=== PATIENT | male | born 1945 | race Caucasian/White ===

== ENCOUNTER → 2017-09-12 | Day surgery (SDC) | payer BC ==
[~2017-09-12] VITALS: Ht 190.5 cm; Wt 108.9 kg
[~2017-09-12] MED LIST: ADVIL COLD-SIN1 EACH PO; AUGMENTIN 875 M1 TA1 PO; HYDROCODONE BIT1 T11 PO; OMEPRAZOLE20 M2 PO; PAXIL10 MG PO; ZOCOR20 MG PO
--- NOTE | ~2017-09-12 | PROC NOTE ---
[place], [place] PROCEDURE NOTE NAME: [facility] #: [id number] UNIT #: [id number] ROOM: DOCTOR: JEISON ANN MD BIRTHDATE: [birth year] DOS: 09/12/2017 PREOPERATIVE DIAGNOSIS: Screening examination. POSTOPERATIVE DIAGNOSIS: Pancolonic diverticulosis, colon polyp (110 cm). PROCEDURE: Colonoscopy with biopsy. ENDOSCOPIST: Jeison Ann M.D. CREDIT COLLECTIONS MANAGER: EVERARDO. ANESTHESIA: MAC. INDICATIONS: This is a 71-year-old gentleman who comes in today for a screening examination. The procedure and its complications explained to the patient in detail. Complications that were discussed included but were not limited to bleeding, colon perforation, and missed lesions. He agreed to proceed. DESCRIPTION OF PROCEDURE: After identifying the patient, the patient was brought to the endoscopy suite and placed in the left lateral position. After time-out procedure was called, IV sedation was administered and a digital rectal exam was performed. This was within normal limits. An adult colonoscope was now introduced into the anal canal and advanced sequentially into the rectum, sigmoid colon, descending colon, transverse colon and ascending colon up to the cecum. There was found to be pancolonic diverticulosis, but no evidence of any strictures or other sequelae of diverticulitis. There was also found to be a single small polyp at 110 cm from the anal verge, which was biopsied and sent for histopathological diagnosis. After hemostasis was confirmed, the scope was withdrawn. Total withdrawal time was approximately 7-1/2 minutes. Upon reaching the rectum, the scope was retroflexed and there was found to be small internal uncomplicated hemorrhoids. The scope was withdrawn and the patient was taken to the recovery room in stable fashion. There were no complications. Dr. Jeison Ann, the attending endoscopist, was present throughout the operating case. Jeison Ann MD CM:PROCNOTE:PROCEDURE NOTE [id number] JEISON ANN MD
[2017-09-12 08:17] VITALS: BP 166/92
[2017-09-12 08:44] VITALS: BP 124/76
[2017-09-12 08:59] VITALS: BP 136/82
[2017-09-12 09:14] VITALS: BP 139/81
== END | disposition home or self-care (01) ==
LOC: SDC 09-11 13:15
DX: Z12.11 Encounter for screening for malignant neoplasm of colon (principal); D12.3 Benign neoplasm of transverse colon; K64.8 Other hemorrhoids; K57.30 Diverticulosis of large intestine without perforation or abscess without bleeding; K21.9 Gastro-esophageal reflux disease without esophagitis; E78.00 Pure hypercholesterolemia, unspecified; Z80.9 Family history of malignant neoplasm, unspecified; Z91.011 Allergy to milk products; Z91.018 Allergy to other foods

== ENCOUNTER 2020-08-29 14:09 | Emergency (ER) | payer OTHER ==
[2020-08-29] MEDS ORDERED: CEPHALEXIN500 M1 PO (15:05)
== END 2020-08-29 15:47 | disposition home or self-care (01) ==
LOC: ED 14:09
DX: S61.213A Laceration without foreign body of left middle finger without damage to nail, initial encounter (principal); Z91.018 Allergy to other foods; Z91.011 Allergy to milk products; Z79.899 Other long term (current) drug therapy; W31.2XXA Contact with powered woodworking and forming machines, initial encounter; Y93.89 Activity, other specified; Y92.89 Other specified places as the place of occurrence of the external cause; Y99.8 Other external cause status

== ENCOUNTER 2020-09-04 13:53 | Emergency (ER) | payer OTHER ==
[~2020-09-04] VITALS: Ht 190.5 cm; Wt 113.4 kg
[~2020-09-04 13:53] MED LIST changes: +CEPHALEXIN500 M1 PO
== END 2020-09-04 16:00 | disposition home or self-care (01) ==
LOC: ED 13:53
DX: S61.213D Laceration without foreign body of left middle finger without damage to nail, subsequent encounter (principal); Z91.018 Allergy to other foods; Z91.011 Allergy to milk products; Z79.899 Other long term (current) drug therapy; X58.XXXD Exposure to other specified factors, subsequent encounter

== ENCOUNTER → 2021-12-07 | Outpatient (CLI) | payer OTHER | END | disposition home or self-care (01) | LOC: COVID19 15:04 | PROVIDERS: ATTEND Internal Medicine | DX: U07.1 COVID-19 (principal) ==

== ENCOUNTER 2025-01-28 01:26 | Inpatient (IN) | payer MEDICARE ==
[~2025-01-28] VITALS: Ht 190.5 cm; Wt 104.6 kg
[2025-01-28] VITALS (7 sets, daily range): BP systolic 96–158; BP diastolic 58–77
[2025-01-28] MEDS ORDERED: ZINC50 M4 PO (02:28)
[2025-01-28] MEDS ORDERED: BIOFLEX TABLET1 EAC1 PO (02:28)
[2025-01-28] MEDS ORDERED: CANDICIDAL CAP1 EACH PO (02:29)
[2025-01-28] MEDS ORDERED: BEET ROOT500 MG PO (02:29)
[2025-01-28] MEDS ORDERED: CLONIDINE HYDR0.1 MG PO (02:30)
[2025-01-28] MEDS ORDERED: diazePAM 10 MG/2 ML SYR IV ONE (02:35)
[2025-01-28 02:37] LABS: BASO % 0.4 % (0.0-1.0); EOS # 0.2 10*3/uL (0.0-0.4); EOS % 1.9 % (1.0-4.0); MEAN CELL VOLUME 89.2 fl (80.0-94.0); MEAN CORPUSCULAR HGB 28.9 pg (27.0-31.0); MEAN CORPUSCULAR HGB CONC 32.4 g/dl (33.0-37.0); MEAN PLATELET VOLUME 8.9 fl (9.6-12.3); MONO # 0.6 10*3/uL (0.1-1.0); MONO % 7.1 % (3.0-9.0); NEUT # 5.6 10*3/uL (2.3-7.9); NEUT % 71.8 % (47.0-73.0); PLATELET COUNT AUTOMATED 214 10*3/uL (130-400); RED BLOOD COUNT 4.15 10*6/uL (4.50-5.90); RED CELL DISTRI WIDTH 14.5 % (0-14.5); WHITE BLOOD COUNT 7.8 10*3/uL (4.8-10.8)
[2025-01-28 02:56] LABS: BUN 23 mg/dl (9-23); CHLORIDE 104 mmol/L (98-107); POTASSIUM 3.9 mmol/L (3.4-5.1)
[2025-01-28] MEDS ORDERED: Ondansetron Hydrochloride 4 MG/2 ML VIAL IV PRN (03:30)
[2025-01-28] MEDS ORDERED: ACETAMINOPHEN 325 MG TAB PO PRN (03:30)
[2025-01-28] MEDS ORDERED: METHOCARBAMOL 750 MG TAB PO PRN (03:35)
[2025-01-28] MEDS ORDERED: hydrOXYzine 50 MG CAP PO PRN (03:35)
[2025-01-28] MEDS ORDERED: diphenhydrAMINE hydrochloride 50 MG/ML VIAL IV PRN (03:35)
[2025-01-28] MEDS ORDERED: Dicyclomine Hydrochloride 20 MG TAB PO PRN (03:35)
[2025-01-28] MEDS ORDERED: rOPINIRole Hydrochloride 0.25 MG TAB PO PRN (03:35)
[2025-01-28] MEDS ORDERED: Buprenorphine Hydrochloride 2 MG TAB SL SCH (03:40)
[2025-01-28] MEDS ORDERED: Pantoprazole Sodium 40 MG TAB PO SCH (06:00)
[2025-01-28 06:53] LABS: ETHYL ALCOHOL < 3.0 mg/dl (<3)
[2025-01-28] MEDS ORDERED: SIMVASTATIN 20 MG TAB PO SCH (10:00)
[2025-01-28] MEDS ORDERED: PARoxetine Hydrochloride 10 MG TAB PO SCH (10:00)
[2025-01-28] MEDS ORDERED: Enoxaparin Sodium 40 MG/0.4 ML SYR SC SCH (10:00)
[2025-01-28] MEDS ORDERED: SODIUM CHLORIDE 0.9% 500 ML IV ONE (13:50)
[2025-01-28] MEDS ORDERED: CALCIUM (TUMS) 500MG PO PRN (23:10)
[2025-01-29] VITALS: BP 136/67; BP 156/80
[2025-01-29 04:00] VITALS: BP 149/83
[2025-01-29] MEDS ORDERED: Buprenorphine Hydrochloride 2 MG TAB SL SCH (06:00)
[2025-01-29 08:00] VITALS: BP 174/93
[2025-01-29 12:00] VITALS: BP 118/73
[2025-01-29 16:00] VITALS: BP 134/61
[2025-01-29 20:00] VITALS: BP 144/93
[2025-01-30] VITALS: BP 149/71
[2025-01-30 08:00] VITALS: BP 137/82
[2025-01-30 12:00] VITALS: BP 122/64
[2025-01-30 16:00] VITALS: BP 142/72
[2025-01-30 20:00] VITALS: BP 118/59
[2025-01-31] VITALS: BP 131/84
[2025-01-31 05:00] VITALS: BP 130/67
[2025-01-31 06:01] LABS: BASO % 0.5 % (0.0-1.0); EOS # 0.3 10*3/uL (0.0-0.4); EOS % 4.7 % (1.0-4.0); HEMATOCRIT 37.7 % (42.0-52.0); MEAN CELL VOLUME 92.4 fl (80.0-94.0); MEAN CORPUSCULAR HGB 28.7 pg (27.0-31.0); MEAN PLATELET VOLUME 8.8 fl (9.6-12.3); MONO # 0.6 10*3/uL (0.1-1.0); MONO % 9.8 % (3.0-9.0); NEUT # 3.2 10*3/uL (2.3-7.9); NEUT % 56.6 % (47.0-73.0); PLATELET COUNT AUTOMATED 184 10*3/uL (130-400); RED BLOOD COUNT 4.08 10*6/uL (4.50-5.90); RED CELL DISTRI WIDTH 14.9 % (0-14.5); WHITE BLOOD COUNT 5.7 10*3/uL (4.8-10.8)
[2025-01-31 06:08] LABS: ALKALINE PHOSPHATASE 144 U/L (46-116); BUN 22 mg/dl (9-23); CHLORIDE 102 mmol/L (98-107); POTASSIUM 4.3 mmol/L (3.4-5.1); SGPT/ALT 37 U/L (5-49); TOTAL PROTEIN 6.6 gm/dL (6.0-8.0)
[2025-01-31 08:00] VITALS: BP 108/61
[2025-01-31] MEDS ORDERED: SODIUM CHLORIDE 0.9% 500 ML IV ONE (09:05)
[2025-01-31 12:00] VITALS: BP 127/67
[2025-01-31] MEDS ORDERED: MUPIROCIN 15 GM TUBE T SCH (13:50)
[2025-01-31 16:00] VITALS: BP 124/66
[2025-01-31 20:00] VITALS: BP 132/47
[2025-02-01] VITALS: BP 142/74
[2025-02-01 06:33] LABS: BASO % 0.4 % (0.0-1.0); EOS # 0.4 10*3/uL (0.0-0.4); EOS % 6.2 % (1.0-4.0); HEMATOCRIT 39.8 % (42.0-52.0); MEAN CELL VOLUME 92.8 fl (80.0-94.0); MEAN CORPUSCULAR HGB 29.6 pg (27.0-31.0); MEAN CORPUSCULAR HGB CONC 31.9 g/dl (33.0-37.0); MEAN PLATELET VOLUME 9.4 fl (9.6-12.3); MONO # 0.6 10*3/uL (0.1-1.0); MONO % 8.6 % (3.0-9.0); NEUT # 3.9 10*3/uL (2.3-7.9); NEUT % 57.5 % (47.0-73.0); PLATELET COUNT AUTOMATED 221 10*3/uL (130-400); RED BLOOD COUNT 4.29 10*6/uL (4.50-5.90); RED CELL DISTRI WIDTH 14.8 % (0-14.5); WHITE BLOOD COUNT 6.7 10*3/uL (4.8-10.8)
[2025-02-01 07:13] LABS: BUN 20 mg/dl (9-23); CHLORIDE 102 mmol/L (98-107); POTASSIUM 3.7 mmol/L (3.4-5.1)
[2025-02-01 08:00] VITALS: BP 117/63
[2025-02-01] MEDS ORDERED: ATARAX,VISTARIL50 MG PO (10:01)
[2025-02-01] MEDS ORDERED: ROPINIROLE HY0.25 MG PO (10:01)
[2025-02-01] MEDS ORDERED: ONDANSETRON HYDR4 MG PO (10:01)
== END 2025-02-01 10:48 | disposition home or self-care (01) | DRG 897 ==
LOC: ED 01:26 → EDHOLD 02:42 → 5E 02:42
PROVIDERS: Emergency Medicine; Student in an Organized Health Care Education/Training Program; ADMIT Internal Medicine; ATTEND Internal Medicine
DX: F11.93 Opioid use, unspecified with withdrawal (principal); G89.29 Other chronic pain; D64.9 Anemia, unspecified; M79.10 Myalgia, unspecified site; M54.50 Low back pain, unspecified; R73.9 Hyperglycemia, unspecified; K57.30 Diverticulosis of large intestine without perforation or abscess without bleeding; K21.9 Gastro-esophageal reflux disease without esophagitis; E78.2 Mixed hyperlipidemia; I71.9 Aortic aneurysm of unspecified site, without rupture; F32.5 Major depressive disorder, single episode, in full remission; F41.9 Anxiety disorder, unspecified; Z90.49 Acquired absence of other specified parts of digestive tract; Z82.49 Family history of ischemic heart disease and other diseases of the circulatory system; Z82.3 Family history of stroke; Z91.014 Allergy to mammalian meats; Z91.011 Allergy to milk products; Z79.899 Other long term (current) drug therapy

== ENCOUNTER 2025-02-12 00:06 | Emergency (ER) | payer MEDICARE ==
[~2025-02-12] VITALS: Ht 185.4 cm; Wt 100.7 kg
[~2025-02-12 00:06] MED LIST changes: +ATARAX,VISTARIL50 MG PO; +BEET ROOT500 MG PO; +BIOFLEX TABLET1 EAC1 PO; +CANDICIDAL CAP1 EACH PO; +CLONIDINE HYDR0.1 MG PO; +ONDANSETRON HYDR4 MG PO; +ROPINIROLE HY0.25 MG PO; +ZINC50 M4 PO
[2025-02-12] MEDS ORDERED: SODIUM CHLORIDE 0.9% 1,000 ML IV ONE (01:45)
[2025-02-12] MEDS ORDERED: Midazolam Hydrochloride 2 MG/2 ML VIAL IV ONE ×2 (01:45→03:05)
[2025-02-12 01:56] LABS: BASO % 0.3 % (0.0-1.0); EOS # 0.2 10*3/uL (0.0-0.4); EOS % 2.7 % (1.0-4.0); HEMATOCRIT 37.7 % (42.0-52.0); MEAN CELL VOLUME 88.9 fl (80.0-94.0); MEAN CORPUSCULAR HGB CONC 32.6 g/dl (33.0-37.0); MEAN PLATELET VOLUME 8.6 fl (9.6-12.3); MONO # 0.4 10*3/uL (0.1-1.0); MONO % 6.3 % (3.0-9.0); NEUT # 4.6 10*3/uL (2.3-7.9); NEUT % 71.3 % (47.0-73.0); PLATELET COUNT AUTOMATED 281 10*3/uL (130-400); RED BLOOD COUNT 4.24 10*6/uL (4.50-5.90); RED CELL DISTRI WIDTH 14.6 % (0-14.5); WHITE BLOOD COUNT 6.4 10*3/uL (4.8-10.8)
[2025-02-12 02:17] LABS: ALKALINE PHOSPHATASE 130 U/L (46-116); BUN 9 mg/dl (9-23); CHLORIDE 105 mmol/L (98-107); POTASSIUM 3.8 mmol/L (3.4-5.1); SGPT/ALT 19 U/L (5-49); TOTAL PROTEIN 7.1 gm/dL (6.0-8.0)
[2025-02-12] MEDS ORDERED: IOHEXOL 300 MG/ML 100 ML VIAL IV ONE (02:25)
[2025-02-12] MEDS ORDERED: IOHEXOL 300 MG/ML 100 ML VIAL ONE (02:46)
[2025-02-12 03:05] LABS: BILIRUBIN Negative (Negative); BLOOD Negative (Negative); CLARITY Clear (Clear); COLOR Yellow (Yellow); GLUCOSE Negative (Negative); KETONE Negative (Negative); LEUKO ESTERASE Trace (Negative); NITRITE Negative (Negative); SPECIFIC GRAVITY <= 1.005 (1.001-1.030); UROBILINOGEN 0.2 E.U./dl (0.0-1.0)
[2025-02-12 03:13] LABS: RBC 0-2 rbc/hpf (0-2)
[2025-02-12] MEDS ORDERED: clonAZEPAM 1 MG TAB PO ONE (04:10)
== END 2025-02-12 05:01 | disposition home or self-care (01) ==
LOC: ED 00:06
PROVIDERS: Internal Medicine
DX: F41.9 Anxiety disorder, unspecified (principal); N40.0 Benign prostatic hyperplasia without lower urinary tract symptoms; D64.9 Anemia, unspecified; Z79.899 Other long term (current) drug therapy; Z98.890 Other specified postprocedural states; Z90.49 Acquired absence of other specified parts of digestive tract

== ENCOUNTER 2025-02-14 21:31 | Emergency (ER) | payer MEDICARE ==
[~2025-02-14] VITALS: Ht 190.5 cm; Wt 102.1 kg
[2025-02-14 22:33] LABS: BASO % 0.7 % (0.0-1.0); EOS # 0.2 10*3/uL (0.0-0.4); EOS % 3.7 % (1.0-4.0); HEMATOCRIT 36.2 % (42.0-52.0); MEAN CELL VOLUME 89.8 fl (80.0-94.0); MEAN CORPUSCULAR HGB 28.5 pg (27.0-31.0); MEAN CORPUSCULAR HGB CONC 31.8 g/dl (33.0-37.0); MEAN PLATELET VOLUME 8.2 fl (9.6-12.3); MONO # 0.5 10*3/uL (0.1-1.0); NEUT # 2.6 10*3/uL (2.3-7.9); NEUT % 56.3 % (47.0-73.0); PLATELET COUNT AUTOMATED 272 10*3/uL (130-400); RED BLOOD COUNT 4.03 10*6/uL (4.50-5.90); RED CELL DISTRI WIDTH 14.6 % (0-14.5); WHITE BLOOD COUNT 4.6 10*3/uL (4.8-10.8)
[2025-02-14 23:01] LABS: BUN 10 mg/dl (9-23); CHLORIDE 106 mmol/L (98-107)
[2025-02-14] MEDS ORDERED: LORazepam 1 MG TAB PO ONE (23:05)
== END 2025-02-15 00:39 | disposition home or self-care (01) ==
LOC: ED 21:31
PROVIDERS: Internal Medicine
DX: F41.9 Anxiety disorder, unspecified (principal); D64.9 Anemia, unspecified; Z79.899 Other long term (current) drug therapy; Z98.890 Other specified postprocedural states; Z90.49 Acquired absence of other specified parts of digestive tract

== ENCOUNTER 2025-03-14 03:51 | Emergency (ER) | payer MEDICARE ==
[2025-03-14] MEDS ORDERED: Ketorolac Tromethamine 30 MG/ML VIAL IM ONE (04:45)
[2025-03-14] MEDS ORDERED: LORazepam 1 MG TAB PO ONE (04:50)
== END 2025-03-14 04:53 | disposition home or self-care (01) ==
LOC: ED 03:51
DX: S30.0XXA Contusion of lower back and pelvis, initial encounter (principal); R42 Dizziness and giddiness; Z98.890 Other specified postprocedural states; Z90.49 Acquired absence of other specified parts of digestive tract; W18.39XA Other fall on same level, initial encounter; Y93.01 Activity, walking, marching and hiking; Y92.89 Other specified places as the place of occurrence of the external cause; Y99.8 Other external cause status